=== PATIENT | male | born 2000 | race Hispanic/Latino ===

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

== ENCOUNTER 2023-03-20 18:17 | Emergency (ER) | payer SELFPAY ==
[~2023-03-20] VITALS: Ht 180.3 cm; Wt 111.0 kg
[~2023-03-20 18:17] MED LIST changes: +PEPCID20 MG PO
[2023-03-20 20:52] VITALS: BP 127/85
[2023-03-20 21:01] VITALS: BP 131/77
[2023-03-20 22:10] LABS: BASO% 0.3 % (0-3); HEMATOCRIT 46.8 % (39.0-50.0); HEMOGLOBIN 16.4 g/dl (14.0-18.0); IMMATURE GRANULOCYTES 0.3 % (0.0-5.0); LYMPH% 13.8 % (15-41); MEAN CELL VOLUME 86.2 fL CALC (80.0-100.0); MEAN CORPUSCULAR HGB 30.2 pG CALC (26.0-32.0); MONO% 7.4 % (2-13); NEUT# 9.99 thou/uL (1.82-7.42); NEUT% 78.2 % (42-76); RED BLOOD COUNT 5.43 mill/uL (4.70-6.10); RED CELL DISTRI WIDTH 12.2 % (11.5-15.5)
[2023-03-20 22:11] VITALS: BP 132/78
[2023-03-20 22:16] VITALS: BP 128/73
[2023-03-20 22:21] LABS: ALBUMIN 5.5 g/dL (3.2-5.0); ALKALINE PHOSPHATASE 92 u/l (38-126); ANION GAP 22 (6-22 (CALC)); BUN 19 mg/dL (9-20); BUN/CREATININE RATIO 14 (12-20 (CALC)); CARBON DIOXIDE 27 mmol/l (22-30); CHLORIDE 97 mmol/l (95-108); CREATININE 1.4 mg/dL (0.7-1.3); GFR FOR AFR.AMER. > 60 ML/MIN (>=60 (CALC)); GFR OTHER RACES > 60 ML/MIN (>=60 (CALC)); LIPASE 54 u/l (23-300); POTASSIUM 4.4 mmol/l (3.5-5.1); SGOT/AST 35 u/l (17-59); SODIUM 142 mmol/l (137-146)
[2023-03-20 22:31] VITALS: BP 114/51
[2023-03-20 22:33] LABS: BILIRUBIN, TOTAL 1.1 mg/dL (0.2-1.3); TOTAL PROTEIN 10.1 g/dL (6.3-8.2)
[2023-03-20] MEDS ORDERED: AMOXICILLIN500 MG PO (22:39)
[2023-03-20 22:50] VITALS: BP 114/51
== END 2023-03-20 22:58 | disposition home or self-care (01) | DRG 153 ==
LOC: ED 18:17
PROVIDERS: Family Medicine
DX: J03.90 Acute tonsillitis, unspecified (principal); Z20.822 Contact with and (suspected) exposure to COVID-19
CPT/HCPCS: S0164

== ENCOUNTER 2024-08-09 09:25 | Emergency (ER) | payer SELFPAY ==
[~2024-08-09] VITALS: Ht 180.3 cm; Wt 131.0 kg
[2024-08-09 09:40] VITALS: BP 129/77
[2024-08-09 10:01] VITALS: BP 122/68
[2024-08-09 11:14] VITALS: BP 129/77
== END 2024-08-09 11:15 | disposition home or self-care (01) | DRG 605 ==
LOC: ED 09:25
DX: S00.83XA Contusion of other part of head, initial encounter (principal); V86.59XA Driver of other special all-terrain or other off-road motor vehicle injured in nontraffic accident, initial encounter